=== PATIENT | male | born 1990 | race Two or more races ===

== ENCOUNTER 2018-04-28 20:26 | Emergency (ER) | payer OTHER ==
[~2018-04-28] VITALS: Ht 180.3 cm; Wt 74.8 kg
--- NOTE | 2018-04-28 21:16 | Emergency Room Report ---
History of Present Illness General Chief Complaint: Eye Problems Source: Patient Present Illness HPI Patient present with complaints of irritation to the right eye Reports that approximately 6:00 this evening he was walking when he felt Something go into his right eye He went to the washing station and washed his eye for approximately 50 minutes At this time he has continued sensation of a foreign body in that area Denies any visual change Denies any chest pain or shortness of breath denies any headache Allergies: Coded Allergies: No Known Allergies (Unverified , 04/28/18) Patient History Past Medical History: see triage record Pertinent Family History: none Reviewed Nursing Documentation: PMH: Agreed; PSxH: Agreed Nursing Documentation-PMH Past Medical History: No Stated History Review of Systems All Other Systems: negative except mentioned in HPI Physical Exam Vital Signs Date Time Temp Pulse Resp B/P (MAP) Pulse Ox O2 Delivery O2 Flow Rate FiO2 04/28/18 20:38 98.0 70 16 130/80 99 Room Air 98.1 Sp02 EP Interpretation: reviewed, normal General Appearance: well appearing, no apparent distress Head: normocephalic, atraumatic Eyes: right eye fluoroscene uptake - No fluorocene uptake, right eye other - Mild scleral conjunctival irritation. No obvious foreign body, no obvious laceration ; bilateral eye PERRL, bilateral eye EOMI ENT: normal pharynx Neck: supple Musculoskeletal: normal inspection Neurologic: alert, oriented x3, responsive Skin: normal color, no rash, warm/dry Lymphatic: no adenopathy Medical Decision Making Diagnostic Impression: Primary Impression: Corneal abrasion ER Course Given the patient's complaints and presentation Fluorescing stain was placed into the eye There is no sign of any uptake, there is some mild conjunctival injection. Otherwise pupils equally reactive, there is no signs of any proptosis or sunken eye, the pressure clinically is appropriate Patient is provided with Motrin and prescription for gentamicin And at this time is stable for close follow-up with Worker's Comp. clinic tomorrow Last Vital Signs Date Time Temp Pulse Resp B/P (MAP) Pulse Ox O2 Delivery O2 Flow Rate FiO2 04/28/18 20:38 98.0 70 16 130/80 99 Room Air 98.1 Status: improved Disposition: HOME, SELF-CARE Condition: Improved Additional Instructions: Follow-up with workers comp clinic tomorrow return with any worsening changes Skye Roberson DO Apr 28, 2018 21:16
[2018-04-28] MEDS ORDERED: GARAMYCIN 0.3%1 DROP RIGHT EYE (21:18)
[2018-04-28 21:45] VITALS: BP 130/80
== END 2018-04-28 21:45 | disposition home or self-care (01) ==
LOC: EMR 21:15
DX: S05.01XA Injury of conjunctiva and corneal abrasion without foreign body, right eye, initial encounter (principal); X58.XXXA Exposure to other specified factors, initial encounter; Y93.01 Activity, walking, marching and hiking; Y92.89 Other specified places as the place of occurrence of the external cause
CPT/HCPCS: 99283